=== PATIENT | male | born 1990 | race Caucasian/White ===

== ENCOUNTER 2020-11-22 11:26 | Emergency (ER) | payer MEDICAID, OTHER ==
[~2020-11-22] VITALS: Ht 190.5 cm; Wt 96.0 kg
[2020-11-22 11:35] VITALS: BP 123/61
[2020-11-22] MEDS ORDERED: GENT30CR TP (16:02)
== END 2020-11-22 16:25 | disposition home or self-care (01) ==
LOC: ER 11:26
DX: H00.011 Hordeolum externum right upper eyelid (principal)
CPT/HCPCS: 99281